=== PATIENT | male | born 1950 | race Two or more races ===

== ENCOUNTER 2016-10-20 11:21 | Emergency (ER) | payer MEDICARE, MEDICAID ==
[~2016-10-20] VITALS: Ht 175.3 cm; Wt 176.2 kg
[~2016-10-20 11:21] MED LIST: AMLO10TA80 PO; ATOR40TA70 PO; FURO40TA5 PO; GLIP10TA10 PO; LISI-604 PO; METO25TA6 PO; SIMV20TA6 PO; TERA2CAP53 PO; TRAM50TA3 PO; WARF1TAB46 PO
[2016-10-20] MEDS ORDERED: SODIUM CHLORIDE 0.9% 1,000 ML IV ONE (14:42)
[2016-10-20] MEDS ORDERED: ONDANSETRON HCL 4MG/2ML VIAL IV STA (14:42)
[2016-10-20 15:15] LABS: HEMATOCRIT. 38.6 % (42.0-52.0); HEMOGLOBIN. 12.8 g/dL (14.0-18.0); MEAN CORPUSCULAR HEMOGLOBIN 26.2 pg (28.0-32.0); MEAN CORPUSCULAR VOLUME 78.9 fL (80.0-94.0); MEAN PLATELET VOLUME 7.9 fl (7.4-10.4); PLATELET 152 x1000/uL (130-400); RED BLOOD CELL COUNT 4.89 mill/uL (4.7-6.1); RED CELL DISTRIBUTION WIDTH 15.7 % (11.6-14.6)
[2016-10-20 15:20] LABS: CHLORIDE 100 mEq/L (98-107)
[2016-10-20 15:22] LABS: INR 1.3
[2016-10-20 15:24] LABS: CARBON DIOXIDE 30 mEq/L (21-32)
[2016-10-20 16:01] LABS: CLARITY URINE CLEAR (CLEAR); COLOR URINE YELLOW (YELLOW); GLUCOSE URINE 3+ (NEGATIVE); KETONES URINE TRACE (NEGATIVE); LEUKOCYTE ESTERASE URINE NEGATIVE (NEGATIVE); NITRITE URINE NEGATIVE (NEGATIVE); OCCULT BLOOD URINE NEGATIVE (NEGATIVE); PROTEIN URINE NEGATIVE (NEGATIVE); SPECIFIC GRAVITY URINE 1.025 (1.005-1.030)
[2016-10-20 16:12] LABS: *AMPHETAMINES SCREEN URINE NEGATIVE (NEGATIVE); *BARBITURATES SCREEN URINE NEGATIVE (NEGATIVE); *BENZODIAZEPINES SCREEN URINE NEGATIVE (NEGATIVE); *COCAINE SCREEN URINE NEGATIVE (NEGATIVE); CANNABINOID URINE SCREEN NEGATIVE (NEGATIVE); METHADONE URINE SCREEN NEGATIVE (NEGATIVE); OPIATES URINE SCREEN NEGATIVE (NEGATIVE); PHENCYCLIDINE URINE SCREEN NEGATIVE (NEGATIVE)
[2016-10-20 16:13] LABS: PLATELET ESTIMATE NORMAL
[2016-10-20] MEDS ORDERED: MORPHINE SULFATE 10 MG/ML CPJ IV ONE (16:45)
[2016-10-20 18:27] VITALS: BP 121/59
== END 2016-10-20 19:01 | disposition home or self-care (01) ==
LOC: ER 16:48
DX: R10.84 Generalized abdominal pain (principal); R11.0 Nausea; N40.0 Benign prostatic hyperplasia without lower urinary tract symptoms; I48.91 Unspecified atrial fibrillation; I25.10 Atherosclerotic heart disease of native coronary artery without angina pectoris; E11.9 Type 2 diabetes mellitus without complications; I50.9 Heart failure, unspecified; Z79.01 Long term (current) use of anticoagulants
CPT/HCPCS: 36415; 74176; 80053; 80305; 81001; 83690; 85025; 85610; 96361; 96374; 96375; 99285; J2270; J2405; J7030

== ENCOUNTER 2016-11-17 19:34 | Emergency (ER) | payer MEDICARE, MEDICAID ==
[~2016-11-17] VITALS: Ht 172.7 cm; Wt 173.0 kg
[2016-11-17] MEDS ORDERED: ACETAMINOPHEN 325MG TABLET PO ONE (21:00)
[2016-11-17 21:35] LABS: HEMATOCRIT. 33.9 % (42.0-52.0); HEMOGLOBIN. 11.1 g/dL (14.0-18.0); MEAN CORPUSCULAR HEMOGLOBIN 26.2 pg (28.0-32.0); MEAN CORPUSCULAR VOLUME 79.9 fL (80.0-94.0); MEAN PLATELET VOLUME 8.2 fl (7.4-10.4); PLATELET 164 x1000/uL (130-400); RED BLOOD CELL COUNT 4.24 mill/uL (4.7-6.1); RED CELL DISTRIBUTION WIDTH 15.7 % (11.6-14.6)
[2016-11-17 21:43] LABS: CHLORIDE 102 mEq/L (98-107)
[2016-11-17 21:45] LABS: CARBON DIOXIDE 27 mEq/L (21-32); ETHANOL BLOOD < 10 mg/dL
[2016-11-17 22:05] LABS: CLARITY URINE CLEAR (CLEAR); COLOR URINE YELLOW (YELLOW); GLUCOSE URINE NEGATIVE (NEGATIVE); KETONES URINE NEGATIVE (NEGATIVE); LEUKOCYTE ESTERASE URINE NEGATIVE (NEGATIVE); NITRITE URINE NEGATIVE (NEGATIVE); OCCULT BLOOD URINE NEGATIVE (NEGATIVE); PROTEIN URINE NEGATIVE (NEGATIVE); UROBILINOGEN URINE 0.2 E.U./dL (0.2-1.0)
[2016-11-17 22:06] LABS: *AMPHETAMINES SCREEN URINE NEGATIVE (NEGATIVE); *BARBITURATES SCREEN URINE NEGATIVE (NEGATIVE); *BENZODIAZEPINES SCREEN URINE NEGATIVE (NEGATIVE); *COCAINE SCREEN URINE NEGATIVE (NEGATIVE); CANNABINOID URINE SCREEN NEGATIVE (NEGATIVE); METHADONE URINE SCREEN NEGATIVE (NEGATIVE); OPIATES URINE SCREEN NEGATIVE (NEGATIVE); PHENCYCLIDINE URINE SCREEN NEGATIVE (NEGATIVE)
[2016-11-17 22:34] LABS: PLATELET ESTIMATE NORMAL
[2016-11-17 23:04] VITALS: BP 109/53
[2016-11-18] MEDS ORDERED: AMOXICILLIN 500 MG CAPSULE PO ONE (00:45)
== END 2016-11-18 01:06 | disposition home or self-care (01) ==
LOC: ER 20:25
DX: J01.90 Acute sinusitis, unspecified (principal); E86.0 Dehydration; I48.91 Unspecified atrial fibrillation; I25.10 Atherosclerotic heart disease of native coronary artery without angina pectoris; N40.0 Benign prostatic hyperplasia without lower urinary tract symptoms; I11.0 Hypertensive heart disease with heart failure; E11.65 Type 2 diabetes mellitus with hyperglycemia; D50.9 Iron deficiency anemia, unspecified; Z79.01 Long term (current) use of anticoagulants; Z79.84 Long term (current) use of oral hypoglycemic drugs
CPT/HCPCS: 36415; 70450; 80053; 80305; 81003; 82962; 85025; 99285; G0482

== ENCOUNTER 2017-08-22 09:28 | Inpatient (IN) | payer MEDICARE, MEDICAID ==
[~2017-08-22] VITALS: Ht 175.3 cm; Wt 188.7 kg
[~2017-08-22 09:28] MED LIST changes: +TERA2CAP4 PO; -TERA2CAP53 PO
[2017-08-22 10:17] LABS: BASOPHILS % 0.6 % (0.0-2.0); EOSINOPHILS % 1.6 % (0.0-5.0); HEMATOCRIT. 30.7 % (42.0-52.0); HEMOGLOBIN. 9.4 g/dL (14.0-18.0); LYMPHOCYTES % 12.5 % (20.0-50.0); MEAN CORPUSCULAR HEMOGLOBIN 23.4 pg (28.0-32.0); MEAN CORPUSCULAR VOLUME 76.9 fL (80.0-94.0); MEAN PLATELET VOLUME 7.2 fl (7.4-10.4); MONOCYTES % 5.6 % (2.0-8.0); NEUTROPHILS % 79.7 % (40.0-76.0); PLATELET 209 x1000/uL (130-400); RED CELL DISTRIBUTION WIDTH 21.5 % (11.6-14.6)
[2017-08-22 10:18] LABS: CHLORIDE 97 mEq/L (98-107)
[2017-08-22 10:19] LABS: INR 1.4; PROTHROMBIN TIME 14.7 sec (9.4-11.6)
[2017-08-22 10:27] LABS: CREATINE KINASE 45 IU/L (39-308)
[2017-08-22 10:30] LABS: CREATINE KINASE MB FRACTION 1.1 ng/mL (0.5-3.6)
[2017-08-22 10:56] LABS: BG BASE EXCESS 11.6 mmol/L (-2.0-2.0); BG CARBOXYHEMOGLOBIN 0.8 % (0.5-1.5); BG DEOXYHEMOGLOBIN 6.7 % (0.0-5.0); BG FRACTION INSPIRED OXYGEN 36; BG HCO3 ACT 39.8 mmol/L (22.0-26.0); BG METHEMOGLOBIN 0.3 % (0.0-1.5); BG OXYGEN SATURATION 93.2 % (92.0-98.5); BG OXYHEMOGLOBIN 92.2 % (94.0-97.0); BG PCO2 75.8 mmHg (35.0-45.0); BG PH 7.338 (7.350-7.450); BG PO2 74.8 mmHg (75.0-100.0); BG SAMPLE SITE RIGHT RADIAL; BG TOTAL HEMOGLOBIN 10.5 g/dL (12.0-18.0); BG VENT MODE NASAL CANNULA
[2017-08-22] MEDS ORDERED: ALBUTEROL (0.083%) 2.5MG/3ML NEB HHN STA (10:57)
[2017-08-22] MEDS ORDERED: BUMETANIDE 0.25MG/ML 2ML VIAL IV ONE (11:00)
[2017-08-22] MEDS ORDERED: CLONIDINE 0.1MG TABLET PO PRN (13:00)
[2017-08-22] MEDS ORDERED: ENOXAPARIN 40MG/0.4ML SYR SUBCUT SCH (13:00)
[2017-08-22] MEDS ORDERED: GUAIFENESIN 200MG/10ML SUGAR FREE UDC PO PRN (13:00)
[2017-08-22] MEDS ORDERED: ONDANSETRON HCL 4MG/2ML VIAL IV PRN (13:00)
[2017-08-22] MEDS ORDERED: MAGNESIUM/ALUMINUM HYDROXIDE/SIMETHICONE 30ML UDC PO PRN (13:00)
[2017-08-22] MEDS ORDERED: IPRATROPIUM/ALBUTEROL 0.5-3(2.5)MG/3ML NEB INH PRN (13:00)
[2017-08-22] MEDS ORDERED: ACETAMINOPHEN 325MG TABLET PO PRN (13:00)
[2017-08-22] MEDS ORDERED: MORPHINE SULFATE 4 MG/ML CPJ (NOT FOR IM USE) IV PRN (13:00)
[2017-08-22] MEDS ORDERED: HYDROCODONE/ACETAMINOPHEN 5/325MG TABLET PO PRN (13:00)
[2017-08-22 15:07] LABS: CREATINE KINASE MB FRACTION 1.3 ng/mL (0.5-3.6)
[2017-08-22] MEDS ORDERED: WARFARIN SODIUM 7.5MG TABLET PO SCH (17:00)
[2017-08-22 17:12] VITALS: BP 116/64
[2017-08-22 17:16] VITALS: BP 116/64
[2017-08-22] MEDS ORDERED: GLIP10TA10 PO (17:27)
[2017-08-22] MEDS ORDERED: AMLO5TAB4 PO (17:27)
[2017-08-22] MEDS ORDERED: ATOR40TA70 PO (17:27)
[2017-08-22] MEDS ORDERED: FURO-152 PO (17:27)
[2017-08-22] MEDS ORDERED: LISI-604 PO (17:27)
[2017-08-22] MEDS ORDERED: TERA5CAP4 PO (17:27)
[2017-08-22] MEDS ORDERED: RIVA20TA PO (17:27)
[2017-08-22] MEDS ORDERED: METO25TA6 PO (17:27)
[2017-08-22] MEDS: FUROSEMIDE 40MG/4ML VIAL IVP SCH (17:35)
[2017-08-22 17:47] VITALS: BP 122/69
[2017-08-22] MEDS ORDERED: DEXTROSE 50% WATER 50ML SYRINGE IV PRN (19:15)
[2017-08-22 20:00] VITALS: BP 120/62
[2017-08-22] MEDS: IPRATROPIUM/ALBUTEROL 0.5-3(2.5)MG/3ML NEB HHN SCH (20:07)
[2017-08-22] MEDS: ATORVASTATIN CALCIUM 40MG TABLET PO SCH (20:07)
[2017-08-22] MEDS: AMLODIPINE 5MG TABLET PO SCH (20:07)
[2017-08-22] MEDS: BLOOD SUGAR DIAGNOSTIC STRIP TEST SCH (20:29)
[2017-08-22] MEDS: INSULIN LISPRO 100 UNITS/ML SUBCUT SCH (20:32)
[2017-08-22 22:00] VITALS: BP 133/73
[2017-08-23] VITALS (12 sets, daily range): BP systolic 92–120; BP diastolic 49–64
[2017-08-23 00:18] LABS: CREATINE KINASE 48 IU/L (39-308)
[2017-08-23 00:20] LABS: CREATINE KINASE MB FRACTION 1.4 ng/mL (0.5-3.6)
[2017-08-23] MEDS: IPRATROPIUM/ALBUTEROL 0.5-3(2.5)MG/3ML NEB HHN SCH ×4 (01:45→20:14)
[2017-08-23] MEDS: FUROSEMIDE 40MG/4ML VIAL IVP SCH ×2 (06:41→18:35)
[2017-08-23 06:53] LABS: INR 1.3; PROTHROMBIN TIME 13.5 sec (9.4-11.6)
[2017-08-23 07:31] LABS: BASOPHILS % 0.6 % (0.0-2.0); EOSINOPHILS % 1.4 % (0.0-5.0); HEMATOCRIT. 26.2 % (42.0-52.0); HEMOGLOBIN. 8.4 g/dL (14.0-18.0); LYMPHOCYTES % 12.8 % (20.0-50.0); MEAN CORPUSCULAR HEMOGLOBIN 26.2 pg (28.0-32.0); MEAN CORPUSCULAR VOLUME 81.7 fL (80.0-94.0); MEAN PLATELET VOLUME 7.8 fl (7.4-10.4); MONOCYTES % 7.4 % (2.0-8.0); NEUTROPHILS % 77.8 % (40.0-76.0); PLATELET 185 x1000/uL (130-400); RED CELL DISTRIBUTION WIDTH 20.5 % (11.6-14.6)
[2017-08-23] MEDS: BLOOD SUGAR DIAGNOSTIC STRIP TEST SCH ×4 (07:39→20:05)
[2017-08-23] MEDS: AMLODIPINE 5MG TABLET PO SCH (08:20)
[2017-08-23] MEDS: INSULIN LISPRO 100 UNITS/ML SUBCUT SCH ×4 (08:39→20:46)
[2017-08-23] MEDS: ASPIRIN 81MG EC TABLET PO SCH (08:39)
[2017-08-23 08:40] LABS: CHLORIDE 98 mEq/L (98-107)
[2017-08-23 08:58] LABS: LDL CHOLESTEROL 28 mg/dL (5-100)
[2017-08-23 08:59] LABS: HDL CHOLESTEROL 31 mg/dL (40-59)
[2017-08-23] MEDS ORDERED: FUROSEMIDE 40MG/4ML VIAL IV SCH (09:00)
[2017-08-23] MEDS ORDERED: AMLODIPINE 10MG TABLET PO SCH (09:00)
[2017-08-23] MEDS: DILTIAZEM HCL 60MG TABLET PO SCH ×2 (13:31→21:17)
[2017-08-23 15:19] LABS: HEMATOCRIT 29.5 % (42.0-52.0); HEMOGLOBIN 8.9 g/dL (14.0-18.0)
[2017-08-23] MEDS: RIVAROXABAN 20 MG TABLET PO SCH (18:35)
[2017-08-23] MEDS: ATORVASTATIN CALCIUM 40MG TABLET PO SCH (20:41)
[2017-08-24] VITALS (12 sets, daily range): BP systolic 103–143; BP diastolic 54–77
[2017-08-24] MEDS: IPRATROPIUM/ALBUTEROL 0.5-3(2.5)MG/3ML NEB HHN SCH ×4 (03:32→20:33)
[2017-08-24 06:44] LABS: BASOPHILS % 0.7 % (0.0-2.0); EOSINOPHILS % 1.3 % (0.0-5.0); HEMATOCRIT. 27.4 % (42.0-52.0); HEMOGLOBIN. 8.8 g/dL (14.0-18.0); LYMPHOCYTES % 13.8 % (20.0-50.0); MEAN CORPUSCULAR HEMOGLOBIN 24.8 pg (28.0-32.0); MEAN CORPUSCULAR VOLUME 77.4 fL (80.0-94.0); MEAN PLATELET VOLUME 7.8 fl (7.4-10.4); MONOCYTES % 7.7 % (2.0-8.0); NEUTROPHILS % 76.5 % (40.0-76.0); PLATELET 201 x1000/uL (130-400); RED BLOOD CELL COUNT 3.53 mill/uL (4.7-6.1); RED CELL DISTRIBUTION WIDTH 20.4 % (11.6-14.6)
[2017-08-24 06:45] LABS: INR 1.5
[2017-08-24] MEDS: DILTIAZEM HCL 60MG TABLET PO SCH ×3 (06:51→21:17)
[2017-08-24] MEDS: FUROSEMIDE 40MG/4ML VIAL IVP SCH ×2 (06:51→17:51)
[2017-08-24 07:10] LABS: CHLORIDE 94 mEq/L (98-107)
[2017-08-24] MEDS: BLOOD SUGAR DIAGNOSTIC STRIP TEST SCH ×4 (08:27→21:18)
[2017-08-24] MEDS: INSULIN LISPRO 100 UNITS/ML SUBCUT SCH ×4 (08:35→21:16)
[2017-08-24] MEDS: DOCUSATE SODIUM 100MG CAPSULE PO PRN ×2 (08:37→17:51)
[2017-08-24] MEDS: ASPIRIN 81MG EC TABLET PO SCH (08:37)
[2017-08-24] MEDS: RIVAROXABAN 20 MG TABLET PO SCH (17:51)
[2017-08-24] MEDS: ATORVASTATIN CALCIUM 40MG TABLET PO SCH (21:16)
[2017-08-25] VITALS (12 sets, daily range): BP systolic 116–142; BP diastolic 50–77
[2017-08-25] MEDS: IPRATROPIUM/ALBUTEROL 0.5-3(2.5)MG/3ML NEB HHN SCH ×4 (01:24→20:16)
[2017-08-25] MEDS: FUROSEMIDE 40MG/4ML VIAL IVP SCH ×2 (06:18→17:33)
[2017-08-25] MEDS: DILTIAZEM HCL 60MG TABLET PO SCH ×3 (06:18→21:59)
[2017-08-25 06:47] LABS: INR 1.6; PROTHROMBIN TIME 16.9 sec (9.4-11.6)
[2017-08-25] MEDS: BLOOD SUGAR DIAGNOSTIC STRIP TEST SCH ×4 (08:24→21:05)
[2017-08-25] MEDS: INSULIN LISPRO 100 UNITS/ML SUBCUT SCH ×4 (08:49→21:06)
[2017-08-25] MEDS: ASPIRIN 81MG EC TABLET PO SCH (08:50)
[2017-08-25] MEDS: DOCUSATE SODIUM 100MG CAPSULE PO PRN ×2 (08:50→17:33)
[2017-08-25 11:40] LABS: BG BASE EXCESS 15.3 mmol/L (-2.0-2.0); BG CARBOXYHEMOGLOBIN 0.6 % (0.5-1.5); BG DEOXYHEMOGLOBIN 19.5 % (0.0-5.0); BG FRACTION INSPIRED OXYGEN 21; BG HCO3 ACT 42.4 mmol/L (22.0-26.0); BG METHEMOGLOBIN 0.4 % (0.0-1.5); BG OXYGEN SATURATION 80.3 % (92.0-98.5); BG OXYHEMOGLOBIN 79.5 % (94.0-97.0); BG PH 7.413 (7.350-7.450); BG PO2 44.5 mmHg (75.0-100.0); BG SAMPLE SITE RIGHT RADIAL; BG TOTAL HEMOGLOBIN 10.4 g/dL (12.0-18.0); BG VENT MODE ROOM AIR
[2017-08-25] MEDS: RIVAROXABAN 20 MG TABLET PO SCH (17:33)
[2017-08-25] MEDS: ATORVASTATIN CALCIUM 40MG TABLET PO SCH (21:07)
[2017-08-26] VITALS (9 sets, daily range): BP systolic 108–148; BP diastolic 59–77
[2017-08-26] MEDS: IPRATROPIUM/ALBUTEROL 0.5-3(2.5)MG/3ML NEB HHN SCH ×3 (02:34→14:11)
[2017-08-26 05:43] LABS: BASOPHILS % 0.6 % (0.0-2.0); EOSINOPHILS % 2.1 % (0.0-5.0); HEMATOCRIT. 29.4 % (42.0-52.0); HEMOGLOBIN. 9.2 g/dL (14.0-18.0); MEAN CORPUSCULAR HEMOGLOBIN 24.4 pg (28.0-32.0); MEAN PLATELET VOLUME 7.7 fl (7.4-10.4); MONOCYTES % 7.1 % (2.0-8.0); NEUTROPHILS % 78.2 % (40.0-76.0); PLATELET 210 x1000/uL (130-400); RED BLOOD CELL COUNT 3.77 mill/uL (4.7-6.1); RED CELL DISTRIBUTION WIDTH 20.6 % (11.6-14.6)
[2017-08-26 05:44] LABS: INR 1.7; PROTHROMBIN TIME 17.4 sec (9.4-11.6)
[2017-08-26] MEDS: FUROSEMIDE 40MG/4ML VIAL IVP SCH (07:17)
[2017-08-26] MEDS: DILTIAZEM HCL 60MG TABLET PO SCH ×2 (07:17→14:33)
[2017-08-26] MEDS: BLOOD SUGAR DIAGNOSTIC STRIP TEST SCH ×2 (07:30→13:01)
[2017-08-26] MEDS: ASPIRIN 81MG EC TABLET PO SCH (08:38)
[2017-08-26] MEDS: INSULIN LISPRO 100 UNITS/ML SUBCUT SCH ×2 (08:39→12:47)
== END 2017-08-26 15:20 | disposition home health service (06) | DRG 291 ==
LOC: ER 09:40 → 5EST 11:12 → SUPCPDRO 12:53 → ENRESERV 15:34
PROVIDERS: ADMIT Hospitalist; ATTEND Hospitalist
PROC: 5A09357 Assistance with Respiratory Ventilation, Less than 24 Consecutive Hours, Continuous Positive Airway Pressure (ICD-10-PCS; principal; 2017-08-22)
PROC: 5A09357 Assistance with Respiratory Ventilation, Less than 24 Consecutive Hours, Continuous Positive Airway Pressure (ICD-10-PCS; 2017-08-23)
PROC: 5A09357 Assistance with Respiratory Ventilation, Less than 24 Consecutive Hours, Continuous Positive Airway Pressure (ICD-10-PCS; 2017-08-24)
PROC: 5A09357 Assistance with Respiratory Ventilation, Less than 24 Consecutive Hours, Continuous Positive Airway Pressure (ICD-10-PCS; 2017-08-26)
DX: I13.0 Hypertensive heart and chronic kidney disease with heart failure and stage 1 through stage 4 chronic kidney disease, or unspecified chronic kidney disease (principal); I50.31 Acute diastolic (congestive) heart failure; J96.01 Acute respiratory failure with hypoxia; J96.02 Acute respiratory failure with hypercapnia; E87.2 Acidosis; E44.1 Mild protein-calorie malnutrition; E66.2 Morbid (severe) obesity with alveolar hypoventilation; Z68.45 Body mass index [BMI] 70 or greater, adult; I48.1 Persistent atrial fibrillation; Z68.44 Body mass index [BMI] 60.0-69.9, adult; N18.9 Chronic kidney disease, unspecified; E87.5 Hyperkalemia; E78.5 Hyperlipidemia, unspecified; I50.82 Biventricular heart failure; Z79.01 Long term (current) use of anticoagulants; Z79.899 Other long term (current) drug therapy; Z99.81 Dependence on supplemental oxygen
CPT/HCPCS: 36415; 36600; 71045; 80048; 80053; 80061; 82375; 82550; 82553; 82805; 82962; 83605; 83690; 83735; 83880; 84484; 85014; 85018; 85025; 85610; 86850; 86900; 87040; 93005; 93306; 93970; 94640; 94660; 96374; 97116; 97163; 97530; 99291; J1815; J1940; J3490; J7611; J7620; A4315

== ENCOUNTER 2018-03-02 22:49 | Inpatient (IN) | payer MEDICARE, MEDICAID ==
[~2018-03-02] VITALS: Ht 175.3 cm; Wt 194.3 kg
[~2018-03-02 22:49] MED LIST changes: -AMLO10TA80 PO; +AMLO5TAB4 PO; +FURO-152 PO; -FURO40TA5 PO; +RIVA20TA PO; -SIMV20TA6 PO; -TERA2CAP4 PO; +TERA5CAP4 PO; -TRAM50TA3 PO; -WARF1TAB46 PO
[2018-03-02] MEDS ORDERED: SODIUM CHLORIDE 0.9% 1,000 ML IV ONE (23:15)
[2018-03-02 23:32] LABS: BASOPHILS % 0.8 % (0.0-2.0); EOSINOPHILS % 1.9 % (0.0-5.0); HEMATOCRIT. 37.9 % (42.0-52.0); HEMOGLOBIN. 12.1 g/dL (14.0-18.0); LYMPHOCYTES % 13.7 % (20.0-50.0); MEAN CORPUSCULAR HEMOGLOBIN 25.8 pg (28.0-32.0); MEAN CORPUSCULAR VOLUME 80.5 fL (80.0-94.0); MEAN PLATELET VOLUME 8.1 fl (7.4-10.4); MONOCYTES % 6.5 % (2.0-8.0); NEUTROPHILS % 77.1 % (40.0-76.0); PLATELET 171 x1000/uL (130-400); RED BLOOD CELL COUNT 4.71 mill/uL (4.7-6.1)
[2018-03-02 23:40] LABS: INR 1.2
[2018-03-02 23:42] LABS: CHLORIDE 101 mEq/L (98-107); ETHANOL BLOOD < 10 mg/dL
[2018-03-02 23:49] LABS: LDL CHOLESTEROL 43 mg/dL (5-100)
[2018-03-03] MEDS ORDERED: ASPIRIN 300MG SUPP PR ONE (00:45)
[2018-03-03 01:49] LABS: *AMPHETAMINES SCREEN URINE NEGATIVE (NEGATIVE); *BARBITURATES SCREEN URINE NEGATIVE (NEGATIVE); *BENZODIAZEPINES SCREEN URINE NEGATIVE (NEGATIVE); *COCAINE SCREEN URINE NEGATIVE (NEGATIVE); CANNABINOID URINE SCREEN NEGATIVE (NEGATIVE); METHADONE URINE SCREEN NEGATIVE (NEGATIVE); OPIATES URINE SCREEN NEGATIVE (NEGATIVE); PHENCYCLIDINE URINE SCREEN NEGATIVE (NEGATIVE)
[2018-03-03 01:55] LABS: CLARITY URINE CLEAR (CLEAR); COLOR URINE YELLOW (YELLOW); KETONES URINE NEGATIVE (NEGATIVE); LEUKOCYTE ESTERASE URINE NEGATIVE (NEGATIVE); NITRITE URINE NEGATIVE (NEGATIVE); OCCULT BLOOD URINE NEGATIVE (NEGATIVE); PROTEIN URINE NEGATIVE (NEGATIVE); SPECIFIC GRAVITY URINE 1.018 (1.005-1.030)
[2018-03-03] MEDS ORDERED: DEXTROSE 50% WATER 50ML SYRINGE IV PRN (13:00)
[2018-03-03] MEDS ORDERED: CLONIDINE 0.1MG TABLET PO PRN (14:15)
[2018-03-03 16:00] VITALS: BP 105/73
[2018-03-03 17:16] VITALS: BP 105/73
[2018-03-03] MEDS ORDERED: RIVAROXABAN 10 MG TABLET PO SCH (17:30)
[2018-03-03] MEDS: INSULIN LISPRO 100 UNITS/ML SUBCUT SCH ×2 (18:12→20:30)
[2018-03-03 20:00] VITALS: BP 141/77
[2018-03-03] MEDS: BLOOD SUGAR DIAGNOSTIC STRIP TEST SCH (20:21)
[2018-03-03] MEDS: ATORVASTATIN CALCIUM 20MG TABLET PO SCH (21:08)
[2018-03-03] MEDS: TERAZOSIN HCL 5MG CAPSULE PO SCH (21:08)
[2018-03-04] VITALS: BP 131/63
[2018-03-04 04:00] VITALS: BP_SYST 112; BP_SYST 76; BP_DIAS 71
[2018-03-04] MEDS: BLOOD SUGAR DIAGNOSTIC STRIP TEST SCH ×4 (07:03→21:00)
[2018-03-04] MEDS: INSULIN LISPRO 100 UNITS/ML SUBCUT SCH ×4 (07:08→22:14)
[2018-03-04 08:00] VITALS: BP 120/68
[2018-03-04] MEDS: ASPIRIN 81MG TABLET PO SCH (09:59)
[2018-03-04] MEDS: PREDNISONE 20MG TABLET PO SCH (09:59)
[2018-03-04 12:00] VITALS: BP 135/76
[2018-03-04] MEDS ORDERED: VERAPAMIL HCL 2.5 MG/1 ML 2ML VIAL IV PRN (12:30)
[2018-03-04] MEDS: VALACYCLOVIR HCL 500MG TABLET PO SCH ×2 (12:47→20:21)
[2018-03-04] MEDS: DILTIAZEM HCL 60MG TABLET PO SCH ×2 (13:32→22:11)
[2018-03-04 16:00] VITALS: BP 130/74
[2018-03-04] MEDS: RIVAROXABAN 20 MG TABLET PO SCH (18:26)
[2018-03-04 20:06] VITALS: BP 124/71
[2018-03-04] MEDS: TERAZOSIN HCL 5MG CAPSULE PO SCH (20:16)
[2018-03-04] MEDS: ATORVASTATIN CALCIUM 20MG TABLET PO SCH (20:21)
[2018-03-04] MEDS: POLYVINYL ALCOHOL OPHTH DROPS 15ML LEFTEYE SCH (21:00)
[2018-03-04] MEDS: INSULIN GLARGINE UD 100 UNITS/ML SYR SUBCUT SCH (22:12)
[2018-03-05] VITALS (7 sets, daily range): BP systolic 104–163; BP diastolic 51–100
[2018-03-05] MEDS: POLYVINYL ALCOHOL OPHTH DROPS 15ML LEFTEYE SCH ×5 (01:00→20:43)
[2018-03-05] MEDS: DILTIAZEM HCL 60MG TABLET PO SCH (05:48)
[2018-03-05] MEDS: BLOOD SUGAR DIAGNOSTIC STRIP TEST SCH ×4 (07:27→20:46)
[2018-03-05 07:32] LABS: BASOPHILS % 0.3 % (0.0-2.0); EOSINOPHILS % 0.1 % (0.0-5.0); HEMATOCRIT. 35.7 % (42.0-52.0); HEMOGLOBIN. 11.6 g/dL (14.0-18.0); LYMPHOCYTES % 8.7 % (20.0-50.0); MEAN CORPUSCULAR HEMOGLOBIN 26.2 pg (28.0-32.0); MEAN CORPUSCULAR VOLUME 80.7 fL (80.0-94.0); MEAN PLATELET VOLUME 8.2 fl (7.4-10.4); MONOCYTES % 5.5 % (2.0-8.0); NEUTROPHILS % 85.4 % (40.0-76.0); PLATELET 174 x1000/uL (130-400); RED BLOOD CELL COUNT 4.42 mill/uL (4.7-6.1)
[2018-03-05 08:29] LABS: CHLORIDE 103 mEq/L (98-107)
[2018-03-05] MEDS: VALACYCLOVIR HCL 500MG TABLET PO SCH ×2 (09:59→20:46)
[2018-03-05] MEDS: PREDNISONE 20MG TABLET PO SCH (09:59)
[2018-03-05] MEDS: ASPIRIN 81MG TABLET PO SCH (09:59)
[2018-03-05] MEDS: DILTIAZEM HCL 30MG TABLET PO SCH ×3 (13:55→23:44)
[2018-03-05] MEDS: INSULIN LISPRO 100 UNITS/ML SUBCUT SCH ×4 (13:57→20:53)
[2018-03-05] MEDS: INSULIN GLARGINE UD 100 UNITS/ML SYR SUBCUT SCH ×2 (13:58→21:47)
[2018-03-05] MEDS ORDERED: INSULIN REGULAR (HUMULIN R) UD 100 UNITS/ML SYR SUBCUT ONE (14:15)
[2018-03-05] MEDS ORDERED: GLIPIZIDE 10MG TABLET PO SCH (14:30)
[2018-03-05] MEDS ORDERED: INSULIN LISPRO 100 UNITS/ML SUBCUT ONE (14:45)
[2018-03-05] MEDS ORDERED: INSULIN LISPRO 100 UNITS/ML SUBCUT NR (14:45)
[2018-03-05] MEDS: RIVAROXABAN 20 MG TABLET PO SCH (17:23)
[2018-03-05] MEDS: TERAZOSIN HCL 5MG CAPSULE PO SCH (20:45)
[2018-03-05] MEDS: ATORVASTATIN CALCIUM 20MG TABLET PO SCH (20:45)
[2018-03-06 04:00] VITALS: BP 132/68
[2018-03-06] MEDS: DILTIAZEM HCL 30MG TABLET PO SCH ×2 (06:33→12:40)
[2018-03-06] MEDS: BLOOD SUGAR DIAGNOSTIC STRIP TEST SCH ×2 (06:33→11:53)
[2018-03-06] MEDS ORDERED: GLIPIZIDE 10MG TABLET PO SCH (06:45)
[2018-03-06 08:00] VITALS: BP 113/52
[2018-03-06 08:42] LABS: BASOPHILS % 0.2 % (0.0-2.0); HEMATOCRIT. 37.4 % (42.0-52.0); HEMOGLOBIN. 11.9 g/dL (14.0-18.0); LYMPHOCYTES % 10.4 % (20.0-50.0); MEAN CORPUSCULAR HEMOGLOBIN 25.8 pg (28.0-32.0); MEAN CORPUSCULAR VOLUME 80.7 fL (80.0-94.0); MEAN PLATELET VOLUME 8.2 fl (7.4-10.4); MONOCYTES % 4.7 % (2.0-8.0); NEUTROPHILS % 84.7 % (40.0-76.0); PLATELET 195 x1000/uL (130-400); RED BLOOD CELL COUNT 4.63 mill/uL (4.7-6.1); RED CELL DISTRIBUTION WIDTH 16.8 % (11.6-14.6)
[2018-03-06 09:04] LABS: CHLORIDE 101 mEq/L (98-107)
[2018-03-06] MEDS: VALACYCLOVIR HCL 500MG TABLET PO SCH (10:18)
[2018-03-06] MEDS: POLYVINYL ALCOHOL OPHTH DROPS 15ML LEFTEYE SCH ×2 (10:18→13:00)
[2018-03-06] MEDS: PREDNISONE 20MG TABLET PO SCH (10:19)
[2018-03-06] MEDS: ASPIRIN 81MG TABLET PO SCH (10:19)
[2018-03-06] MEDS: INSULIN GLARGINE UD 100 UNITS/ML SYR SUBCUT SCH (10:26)
[2018-03-06] MEDS: INSULIN LISPRO 100 UNITS/ML SUBCUT SCH (12:43)
[2018-03-06 13:11] VITALS: BP 122/65
== END 2018-03-06 14:08 | disposition home or self-care (01) | DRG 74 ==
LOC: ER 22:49 → 5WST 03-03 00:35 → ENRESERV 03-03 16:20
PROVIDERS: ADMIT Internal Medicine; ATTEND Internal Medicine
DX: G51.0 Bell's palsy (principal); I48.1 Persistent atrial fibrillation; Z68.44 Body mass index [BMI] 60.0-69.9, adult; E44.0 Moderate protein-calorie malnutrition; I50.32 Chronic diastolic (congestive) heart failure; D68.59 Other primary thrombophilia; E66.01 Morbid (severe) obesity due to excess calories; E11.9 Type 2 diabetes mellitus without complications; E78.5 Hyperlipidemia, unspecified; G47.33 Obstructive sleep apnea (adult) (pediatric); I11.0 Hypertensive heart disease with heart failure; I48.2 Chronic atrial fibrillation; Z79.4 Long term (current) use of insulin; Z79.01 Long term (current) use of anticoagulants; Z79.899 Other long term (current) drug therapy
CPT/HCPCS: 36415; 71045; 80048; 80305; 82962; 83721; 83735; 84443; 84484; 92610; 93005; 96360; 97162; 99291; G0482; J1815; J7030; J7512

== ENCOUNTER 2018-04-08 06:00 | Inpatient (IN) | payer MEDICARE, MEDICAID ==
[2018-04-08] VITALS (24 sets, daily range): BP systolic 93–164; BP diastolic 32–92
[~2018-04-08] VITALS: Ht 175.3 cm; Wt 192.8 kg
[2018-04-08 07:39] LABS: CHLORIDE 103 mEq/L (98-107)
[2018-04-08 07:40] LABS: HEMATOCRIT 37.8 % (42.0-52.0); HEMOGLOBIN 12.4 g/dL (14.0-18.0); MEAN CORPUSCULAR HEMOGLOBIN 27.2 pg (28.0-32.0); MEAN CORPUSCULAR VOLUME 83.3 fL (80.0-94.0); PLATELET 176 x1000/uL (130-400); RED BLOOD CELL COUNT 4.54 mill/uL (4.7-6.1); RED CELL DISTRIBUTION WIDTH 17.4 % (11.6-14.6)
[2018-04-08 07:41] LABS: INR 1.2; PARTIAL THROMBOPLASTIN TIME 30.2 sec (23.4-31.0); PROTHROMBIN TIME 11.8 sec (9.1-11.1)
[2018-04-08] MEDS ORDERED: IODIXANOL 320MG/ML 100 ML BOTTLE IV ONE (07:51)
[2018-04-08] MEDS ORDERED: HEPARIN 1,000 UNITS PREMIX 0 ML IV ONE (07:51)
[2018-04-08] MEDS ORDERED: GENTAMICIN SULF 40MG/ML 2ML VIAL ONE (07:51)
[2018-04-08] MEDS ORDERED: GENTAMICIN/NS IRRIGATION 500 ML IR ONE (07:52)
[2018-04-08] MEDS ORDERED: LIDOCAINE HCL 1% 20ML VIAL (Pyxis) INJ ONE (07:52)
[2018-04-08] MEDS ORDERED: PROPOFOL 10MG/ML 100ML 100 ML IV ONE (08:30)
[2018-04-08] MEDS ORDERED: GLYCOPYRROLATE 0.2 MG/ML 2ML VIAL ONE (08:59)
[2018-04-08] MEDS ORDERED: PROPOFOL 200MG/20ML VIAL IV ONE (08:59)
[2018-04-08] MEDS ORDERED: FENTANYL CITRATE/PF 50MCG/ML 2ML VIAL ONE ×2 (08:59→09:39)
[2018-04-08] MEDS ORDERED: LIDOCAINE HCL/PF 1% 10 MG/ML 5ML VIAL ONE (08:59)
[2018-04-08] MEDS ORDERED: MIDAZOLAM HCL 2 MG/2 ML VIAL ONE ×3 (08:59→10:28)
[2018-04-08] MEDS ORDERED: SUCCINYLCHOLINE CHLORIDE 200MG/10ML IV ONE (09:00)
[2018-04-08] MEDS ORDERED: INSU100I28 SQ ×2 (09:48→12:52)
[2018-04-08] MEDS ORDERED: GLIP10TA10 PO (09:48)
[2018-04-08] MEDS ORDERED: SODIUM CHLORIDE 0.9% 1,000 ML IV ONE (11:09)
[2018-04-08] MEDS ORDERED: ONDANSETRON HCL 4MG/2ML INJ IV PRN (11:15)
[2018-04-08] MEDS ORDERED: HYDROMORPHONE HCL/PF 2MG/ML CPJ IV PRN (11:15)
[2018-04-08] MEDS: HYDROCODONE/ACETAMINOPHEN 5/325MG TABLET PO PRN ×2 (13:08→17:27)
[2018-04-08] MEDS ORDERED: DEXTROSE 50% WATER 50ML SYRINGE IV PRN (16:45)
[2018-04-08] MEDS: BLOOD SUGAR DIAGNOSTIC STRIP TEST SCH ×2 (16:50→21:00)
[2018-04-08] MEDS ORDERED: RIVAROXABAN 20 MG TABLET PO SCH (17:20)
[2018-04-08] MEDS: FUROSEMIDE 40MG TABLET PO SCH (17:26)
[2018-04-08] MEDS: GLIPIZIDE 10MG TABLET PO SCH (17:26)
[2018-04-08] MEDS: LISINOPRIL 20MG TABLET PO SCH (17:27)
[2018-04-08] MEDS: INSULIN LISPRO 100 UNITS/ML SUBCUT SCH ×2 (17:28→21:23)
[2018-04-08] MEDS ORDERED: ATORVASTATIN CALCIUM 40MG TABLET PO SCH (21:00)
[2018-04-08] MEDS ORDERED: TERAZOSIN HCL 5MG CAPSULE PO SCH (21:00)
[2018-04-08] MEDS: METOPROLOL TARTRATE 25MG TABLET PO SCH (21:25)
[2018-04-08] MEDS: INSULIN GLARGINE UD 100 UNITS/ML SYR SUBCUT SCH ×2 (21:56→22:00)
[2018-04-09] VITALS (13 sets, daily range): BP systolic 89–128; BP diastolic 29–80
[2018-04-09] MEDS: HYDROCODONE/ACETAMINOPHEN 5/325MG TABLET PO PRN ×2 (03:54→11:36)
[2018-04-09] MEDS: BLOOD SUGAR DIAGNOSTIC STRIP TEST SCH ×2 (06:24→11:50)
[2018-04-09] MEDS: FUROSEMIDE 40MG TABLET PO SCH (06:24)
[2018-04-09] MEDS: INSULIN LISPRO 100 UNITS/ML SUBCUT SCH ×2 (06:25→12:29)
[2018-04-09 06:31] LABS: BASOPHILS % 0.5 % (0.0-2.0); EOSINOPHILS % 1.2 % (0.0-5.0); HEMATOCRIT. 35.6 % (42.0-52.0); HEMOGLOBIN. 11.7 g/dL (14.0-18.0); LYMPHOCYTES % 13.5 % (20.0-50.0); MEAN CORPUSCULAR HEMOGLOBIN 27.4 pg (28.0-32.0); MEAN CORPUSCULAR VOLUME 83.3 fL (80.0-94.0); MEAN PLATELET VOLUME 8.1 fl (7.4-10.4); MONOCYTES % 7.1 % (2.0-8.0); NEUTROPHILS % 77.7 % (40.0-76.0); PLATELET 153 x1000/uL (130-400); RED BLOOD CELL COUNT 4.27 mill/uL (4.7-6.1); RED CELL DISTRIBUTION WIDTH 17.2 % (11.6-14.6)
[2018-04-09 06:43] LABS: CHLORIDE 103 mEq/L (98-107)
[2018-04-09 06:49] LABS: LDL CHOLESTEROL 39 mg/dL (5-100)
[2018-04-09 06:51] LABS: HDL CHOLESTEROL 31 mg/dL (40-59)
[2018-04-09] MEDS: GLIPIZIDE 10MG TABLET PO SCH (07:45)
[2018-04-09] MEDS: LISINOPRIL 20MG TABLET PO SCH (08:11)
[2018-04-09] MEDS: METOPROLOL TARTRATE 25MG TABLET PO SCH (08:12)
[2018-04-09] MEDS ORDERED: GLIPIZIDE 10MG TABLET PO SCH (09:00)
[2018-04-09] MEDS ORDERED: [UNRECOGNIZED DRUG - OTHER] SQ SCH (09:00)
[2018-04-09] MEDS ORDERED: AMLODIPINE 5MG TABLET PO SCH (09:00)
[2018-04-09] MEDS ORDERED: INSULIN GLARGINE HUM REC ANLOG SQ SCH (09:00)
[2018-04-09] MEDS ORDERED: INSULIN GLARGINE UD 100 UNITS/ML SYR SUBCUT SCH (10:00)
[2018-04-09] MEDS ORDERED: INSULIN LISPRO 100 UNITS/ML SUBCUT NR (12:30)
== END 2018-04-09 14:58 | disposition home or self-care (01) | DRG 243 ==
LOC: OR 06:00 → 3WST 06:01
PROVIDERS: ADMIT Internal Medicine Clinical Cardiac Electrophysiology; ATTEND Internal Medicine Clinical Cardiac Electrophysiology
PROC: 02HK3JZ Insertion of Pacemaker Lead into Right Ventricle, Percutaneous Approach (ICD-10-PCS; 2018-04-08)
PROC: B517YZZ Fluoroscopy of Left Subclavian Vein using Other Contrast (ICD-10-PCS; 2018-04-08)
PROC: 0JH604Z Insertion of Pacemaker, Single Chamber into Chest Subcutaneous Tissue and Fascia, Open Approach (ICD-10-PCS; principal; 2018-04-08 08:00)
DX: I49.5 Sick sinus syndrome (principal); E46 Unspecified protein-calorie malnutrition; Z68.44 Body mass index [BMI] 60.0-69.9, adult; I48.91 Unspecified atrial fibrillation; E11.42 Type 2 diabetes mellitus with diabetic polyneuropathy; E11.65 Type 2 diabetes mellitus with hyperglycemia; E66.01 Morbid (severe) obesity due to excess calories; I10 Essential (primary) hypertension; G51.0 Bell's palsy; I87.2 Venous insufficiency (chronic) (peripheral); N40.0 Benign prostatic hyperplasia without lower urinary tract symptoms; Z79.4 Long term (current) use of insulin; Z82.49 Family history of ischemic heart disease and other diseases of the circulatory system; Z83.3 Family history of diabetes mellitus; Z79.01 Long term (current) use of anticoagulants; Z79.899 Other long term (current) drug therapy
CPT/HCPCS: 33207; 36415; 71045; 75820; 80048; 80061; 82962; 83036; 83735; 84443; 85027; 93005; 93306; A4565; C1786; C1892; C1893; C1898; J0330; J1580; J1644; J1815; J2250; J2704; J3010; J3490; J7050; Q9967

== ENCOUNTER 2018-06-30 10:51 | Inpatient (IN) | payer MEDICARE, MEDICAID ==
[~2018-06-30] VITALS: Ht 177.8 cm; Wt 176.0 kg
[~2018-06-30 10:51] MED LIST changes: +INSU100I28 SQ
[2018-06-30] MEDS ORDERED: ONDANSETRON HCL 4MG/2ML INJ IV STA (17:40)
[2018-06-30] MEDS ORDERED: FAMOTIDINE 20MG/2ML VIAL IV STA (17:40)
[2018-06-30] MEDS ORDERED: DILTIAZEM HCL 5MG/ML 5ML VIAL IV ONE ×2 (18:00→20:45)
[2018-06-30] MEDS ORDERED: ASPIRIN 81MG TABLET PO ONE (18:30)
[2018-06-30] MEDS ORDERED: DILTIAZEM HCL 30MG TABLET PO ONE ×2 (18:30→20:45)
[2018-06-30 18:37] LABS: CHLORIDE 92 mEq/L (98-107)
[2018-06-30 18:40] LABS: D-DIMER 1.03 mg/L FEU (<0.50); HEMATOCRIT. 44.5 % (42.0-52.0); HEMOGLOBIN. 14.2 g/dL (14.0-18.0); INR 1.3; MEAN CORPUSCULAR VOLUME 88.1 fL (80.0-94.0); PLATELET 181 x1000/uL (130-400); PROTHROMBIN TIME 12.7 sec (9.1-11.1); RED BLOOD CELL COUNT 5.05 mill/uL (4.7-6.1); RED CELL DISTRIBUTION WIDTH 14.7 % (11.6-14.6)
[2018-06-30 18:52] LABS: CLARITY URINE CLEAR (CLEAR); COLOR URINE YELLOW (YELLOW); KETONES URINE 1+ (NEGATIVE); LEUKOCYTE ESTERASE URINE NEGATIVE (NEGATIVE); NITRITE URINE NEGATIVE (NEGATIVE); OCCULT BLOOD URINE NEGATIVE (NEGATIVE); PROTEIN URINE TRACE (NEGATIVE); UROBILINOGEN URINE 0.2 E.U./dL (0.2-1.0)
[2018-06-30 18:56] LABS: PLATELET ESTIMATE NORMAL
[2018-06-30] MEDS ORDERED: INSULIN REGULAR 0.5UNIT/ML SYR(NEO) IV ONE (19:00)
[2018-06-30] MEDS ORDERED: VANCOMYCIN 1 G PREMIX 200 ML IV SCH (19:00)
[2018-06-30] MEDS ORDERED: PIPERACILLIN SODIUM/TAZOBACTAM 4.5 G in DEXT 5% WATER 100 ML IV SCH (19:00)
[2018-06-30] MEDS ORDERED: INSULIN REGULAR (HUMULIN R) UD 100 UNITS/ML SYR IV ONE (20:45)
[2018-06-30] MEDS ORDERED: GUAIFENESIN 200MG/10ML SUGAR FREE UDC PO PRN (21:15)
[2018-06-30] MEDS ORDERED: MAGNESIUM/ALUMINUM HYDROXIDE/SIMETHICONE 30ML UDC PO PRN (21:15)
[2018-06-30] MEDS ORDERED: ACETAMINOPHEN 325MG TABLET PO PRN (21:15)
[2018-06-30] MEDS ORDERED: LEVOFLOXACIN 500MG PREMIX 100 ML IV SCH (21:15)
[2018-06-30] MEDS ORDERED: NA PHOS,M-B/NA PHOS,DI-BA ENEMA 118ML PR PRN (21:15)
[2018-06-30] MEDS ORDERED: DIPHENHYDRAMINE 50MG/ML VIAL IV PRN (21:15)
[2018-06-30] MEDS ORDERED: CLONIDINE 0.1MG TABLET PO PRN (21:15)
[2018-06-30] MEDS ORDERED: LORAZEPAM 2MG/ML CPJ IV PRN (21:15)
[2018-06-30] MEDS ORDERED: INSULIN REGULAR (HUMULIN R) 300UNITS/3ML IV NR (21:15)
[2018-06-30] MEDS ORDERED: ONDANSETRON HCL 4MG/2ML INJ IV PRN (21:15)
[2018-06-30] MEDS: IPRATROPIUM/ALBUTEROL 0.5-3(2.5)MG/3ML NEB INH PRN (22:05)
[2018-06-30 22:13] LABS: BG BASE EXCESS 1.1 mmol/L (-2.0-2.0); BG BILEVEL POS AIRWAY PRESSURE 15/5; BG CARBOXYHEMOGLOBIN 1.3 % (0.5-1.5); BG DEOXYHEMOGLOBIN 1.8 % (0.0-5.0); BG FRACTION INSPIRED OXYGEN 40; BG HCO3 ACT 27.1 mmol/L (22.0-26.0); BG METHEMOGLOBIN 0.4 % (0.0-1.5); BG OXYGEN SATURATION 98.2 % (92.0-98.5); BG OXYHEMOGLOBIN 96.5 % (94.0-97.0); BG PH 7.369 (7.350-7.450); BG PO2 121.9 mmHg (75.0-100.0); BG SAMPLE SITE RIGHT RADIAL; BG TOTAL HEMOGLOBIN 13.7 g/dL (12.0-18.0); BG VENT MODE MASK - BIPAP
[2018-06-30] MEDS: MORPHINE SULFATE 4 MG/ML CPJ (NOT FOR IM USE) IV PRN (23:00)
[2018-07-01] MEDS: HYDROCODONE/ACETAMINOPHEN 5/325MG TABLET PO PRN ×2 (00:46→18:37)
[2018-07-01 02:00] VITALS: BP 128/43
[2018-07-01 04:00] VITALS: BP 105/56
[2018-07-01] MEDS ORDERED: DIGO125T20 MT (04:39)
[2018-07-01] MEDS ORDERED: FERR325T6 MT (04:39)
[2018-07-01] MEDS: LEVOFLOXACIN 500MG PREMIX 100 ML IV SCH (06:28)
[2018-07-01] MEDS: BLOOD SUGAR DIAGNOSTIC STRIP TEST SCH ×5 (06:28→21:00)
[2018-07-01] MEDS ORDERED: DEXTROSE 50% WATER 50ML SYRINGE IV PRN (06:30)
[2018-07-01] MEDS: INSULIN LISPRO 100 UNITS/ML SUBCUT SCH ×4 (06:46→23:38)
[2018-07-01 07:43] LABS: HEMATOCRIT. 39.5 % (42.0-52.0); HEMOGLOBIN. 12.6 g/dL (14.0-18.0); MEAN CORPUSCULAR HEMOGLOBIN 28.1 pg (28.0-32.0); MEAN PLATELET VOLUME 8.8 fl (7.4-10.4); PLATELET 142 x1000/uL (130-400); RED BLOOD CELL COUNT 4.48 mill/uL (4.7-6.1); RED CELL DISTRIBUTION WIDTH 14.2 % (11.6-14.6)
[2018-07-01 08:32] VITALS: BP 104/51
[2018-07-01 08:38] LABS: CHLORIDE 95 mEq/L (98-107)
[2018-07-01 08:47] LABS: LDL CHOLESTEROL 25 mg/dL (5-100)
[2018-07-01 08:49] LABS: HDL CHOLESTEROL 37 mg/dL (40-59); T4 FREE 1.54 ng/dL (0.76-1.46)
[2018-07-01] MEDS ORDERED: ENOXAPARIN 40MG/0.4ML SYR SUBCUT SCH (09:00)
[2018-07-01] MEDS: MORPHINE SULFATE 4 MG/ML CPJ (NOT FOR IM USE) IV PRN ×2 (09:11→23:44)
[2018-07-01] MEDS: ASPIRIN 81MG EC TABLET PO SCH (09:11)
[2018-07-01] MEDS ORDERED: METOPROLOL TARTRATE 25MG TABLET PO NR (11:45)
[2018-07-01 12:03] VITALS: BP 111/52
[2018-07-01] MEDS: FUROSEMIDE 40MG/4ML VIAL IV SCH ×2 (12:19→18:40)
[2018-07-01] MEDS ORDERED: SODIUM POLYSTYRENE SULFONATE 15 G/60 ML BOT PO NR (12:30)
[2018-07-01 12:59] LABS: PLATELET ESTIMATE NORMAL
[2018-07-01] MEDS ORDERED: INSULIN GLARGINE UD 100 UNITS/ML SYR SUBCUT SCH ×3 (15:00→23:33)
[2018-07-01 16:11] VITALS: BP 95/48
[2018-07-01] MEDS: TERAZOSIN HCL 5MG CAPSULE PO SCH (17:00)
[2018-07-01] MEDS ORDERED: IPRATROPIUM BROMIDE (0.02%) 0.5MG/2.5ML NEB HHN SCH (18:00)
[2018-07-01] MEDS: RIVAROXABAN 20 MG TABLET PO SCH (18:26)
[2018-07-01] MEDS: DIGOXIN 125MCG TABLET PO SCH (18:26)
[2018-07-01] MEDS: GLIPIZIDE 10MG TABLET PO SCH (18:27)
[2018-07-01] MEDS: FERROUS SULFATE 325MG TABLET PO SCH (18:27)
[2018-07-01] MEDS: ATORVASTATIN CALCIUM 40MG TABLET PO SCH (23:18)
[2018-07-01] MEDS: METOPROLOL TARTRATE 25MG TABLET PO SCH (23:19)
[2018-07-01] MEDS: LISINOPRIL 20MG TABLET PO SCH (23:42)
[2018-07-02] MEDS: INSULIN GLARGINE UD 100 UNITS/ML SYR SUBCUT SCH ×2 (01:48→21:09)
[2018-07-02 04:00] VITALS: BP 108/56
[2018-07-02 06:18] LABS: HEMATOCRIT. 37.2 % (42.0-52.0); MEAN CORPUSCULAR HEMOGLOBIN 28.3 pg (28.0-32.0); MEAN CORPUSCULAR VOLUME 87.7 fL (80.0-94.0); PLATELET 150 x1000/uL (130-400); RED BLOOD CELL COUNT 4.24 mill/uL (4.7-6.1); RED CELL DISTRIBUTION WIDTH 14.3 % (11.6-14.6)
[2018-07-02] MEDS: LEVOFLOXACIN 500MG PREMIX 100 ML IV SCH (06:21)
[2018-07-02 06:42] LABS: CHLORIDE 93 mEq/L (98-107)
[2018-07-02 07:03] LABS: DIGOXIN 0.8 ng/mL (0.9-2.0)
[2018-07-02] MEDS: GLIPIZIDE 10MG TABLET PO SCH ×2 (07:20→18:03)
[2018-07-02] MEDS: BLOOD SUGAR DIAGNOSTIC STRIP TEST SCH ×4 (07:42→21:00)
[2018-07-02] MEDS: FERROUS SULFATE 325MG TABLET PO SCH ×3 (07:50→17:22)
[2018-07-02 08:00] VITALS: BP 121/57
[2018-07-02] MEDS: AMLODIPINE 5MG TABLET PO SCH (09:00)
[2018-07-02] MEDS: FUROSEMIDE 40MG/4ML VIAL IV SCH ×2 (09:00→17:22)
[2018-07-02] MEDS: METOPROLOL TARTRATE 25MG TABLET PO SCH ×2 (09:00→21:04)
[2018-07-02] MEDS: LISINOPRIL 20MG TABLET PO SCH ×2 (09:00→21:03)
[2018-07-02] MEDS: ASPIRIN 81MG EC TABLET PO SCH (09:00)
[2018-07-02] MEDS: IPRATROPIUM BROMIDE (0.02%) 0.5MG/2.5ML NEB HHN SCH ×3 (09:01→21:02)
[2018-07-02 10:29] LABS: PLATELET ESTIMATE NORMAL
[2018-07-02 12:00] VITALS: BP 126/51
[2018-07-02] MEDS: MORPHINE SULFATE 4 MG/ML CPJ (NOT FOR IM USE) IV PRN ×2 (13:34→18:03)
[2018-07-02] MEDS: INSULIN LISPRO 100 UNITS/ML SUBCUT SCH ×3 (13:41→21:08)
[2018-07-02 16:00] VITALS: BP 121/52
[2018-07-02] MEDS: DIGOXIN 125MCG TABLET PO SCH (17:22)
[2018-07-02] MEDS: TERAZOSIN HCL 5MG CAPSULE PO SCH (17:22)
[2018-07-02] MEDS: RIVAROXABAN 20 MG TABLET PO SCH (17:22)
[2018-07-02 20:00] VITALS: BP 111/53
[2018-07-02] MEDS: ATORVASTATIN CALCIUM 40MG TABLET PO SCH (21:03)
[2018-07-03] VITALS: BP 99/48
[2018-07-03] MEDS: IPRATROPIUM BROMIDE (0.02%) 0.5MG/2.5ML NEB HHN SCH ×4 (00:56→21:06)
[2018-07-03] MEDS: BLOOD SUGAR DIAGNOSTIC STRIP TEST SCH ×4 (05:33→20:26)
[2018-07-03] MEDS: INSULIN LISPRO 100 UNITS/ML SUBCUT SCH ×4 (05:37→20:25)
[2018-07-03] MEDS: LEVOFLOXACIN 500MG PREMIX 100 ML IV SCH (05:39)
[2018-07-03 08:00] VITALS: BP 95/52
[2018-07-03 08:02] LABS: HEMATOCRIT. 34.8 % (42.0-52.0); HEMOGLOBIN. 11.5 g/dL (14.0-18.0); MEAN CORPUSCULAR HEMOGLOBIN 28.9 pg (28.0-32.0); MEAN CORPUSCULAR VOLUME 87.3 fL (80.0-94.0); MEAN PLATELET VOLUME 8.3 fl (7.4-10.4); PLATELET 154 x1000/uL (130-400); RED BLOOD CELL COUNT 3.99 mill/uL (4.7-6.1); RED CELL DISTRIBUTION WIDTH 13.7 % (11.6-14.6)
[2018-07-03] MEDS: METOPROLOL TARTRATE 25MG TABLET PO SCH ×2 (08:58→20:19)
[2018-07-03] MEDS: AMLODIPINE 5MG TABLET PO SCH (08:58)
[2018-07-03] MEDS: FUROSEMIDE 40MG/4ML VIAL IV SCH ×2 (08:59→17:00)
[2018-07-03] MEDS: LISINOPRIL 20MG TABLET PO SCH ×2 (08:59→20:19)
[2018-07-03] MEDS: GLIPIZIDE 10MG TABLET PO SCH ×2 (09:04→19:10)
[2018-07-03] MEDS: FERROUS SULFATE 325MG TABLET PO SCH ×3 (09:04→19:11)
[2018-07-03] MEDS: ASPIRIN 81MG EC TABLET PO SCH (09:04)
[2018-07-03 09:38] LABS: PLATELET ESTIMATE NORMAL
[2018-07-03] MEDS: INSULIN GLARGINE UD 100 UNITS/ML SYR SUBCUT SCH ×2 (10:35→22:10)
[2018-07-03] MEDS ORDERED: SODIUM CHLORIDE 0.9% 1000ML BAG (SEPSIS BOLUS) IV ONE (12:45)
[2018-07-03 12:52] VITALS: BP 95/52
[2018-07-03] MEDS ORDERED: SODIUM CHLORIDE 0.9% 500 ML IV SCH (13:00)
[2018-07-03] MEDS ORDERED: SODIUM CHLORIDE 0.9% 500 ML IV ONE (13:00)
[2018-07-03 16:40] VITALS: BP 142/57
[2018-07-03 17:00] VITALS: BP 99/43
[2018-07-03] MEDS: TERAZOSIN HCL 5MG CAPSULE PO SCH (17:00)
[2018-07-03] MEDS: RIVAROXABAN 20 MG TABLET PO SCH (19:10)
[2018-07-03] MEDS: DIGOXIN 125MCG TABLET PO SCH (19:10)
[2018-07-03] MEDS: ATORVASTATIN CALCIUM 40MG TABLET PO SCH (20:19)
[2018-07-03 20:40] VITALS: BP 106/53
[2018-07-04 00:37] VITALS: BP 103/51
[2018-07-04] MEDS: IPRATROPIUM BROMIDE (0.02%) 0.5MG/2.5ML NEB HHN SCH ×3 (01:44→14:09)
[2018-07-04 04:00] VITALS: BP 95/59
[2018-07-04] MEDS: INSULIN LISPRO 100 UNITS/ML SUBCUT SCH ×4 (05:38→21:40)
[2018-07-04] MEDS: BLOOD SUGAR DIAGNOSTIC STRIP TEST SCH ×4 (05:38→21:18)
[2018-07-04 06:16] LABS: BASOPHILS % 0.6 % (0.0-2.0); HEMATOCRIT. 34.7 % (42.0-52.0); HEMOGLOBIN. 11.2 g/dL (14.0-18.0); LYMPHOCYTES % 7.5 % (20.0-50.0); MEAN CORPUSCULAR HEMOGLOBIN 28.2 pg (28.0-32.0); MEAN PLATELET VOLUME 8.4 fl (7.4-10.4); MONOCYTES % 7.5 % (2.0-8.0); NEUTROPHILS % 82.4 % (40.0-76.0); PLATELET 179 x1000/uL (130-400); RED BLOOD CELL COUNT 3.99 mill/uL (4.7-6.1); RED CELL DISTRIBUTION WIDTH 14.1 % (11.6-14.6)
[2018-07-04 08:00] VITALS: BP 93/56
[2018-07-04] MEDS: METOPROLOL TARTRATE 25MG TABLET PO SCH ×2 (09:00→21:17)
[2018-07-04] MEDS: LISINOPRIL 20MG TABLET PO SCH ×2 (09:00→21:00)
[2018-07-04] MEDS: AMLODIPINE 5MG TABLET PO SCH (09:00)
[2018-07-04] MEDS: ASPIRIN 81MG EC TABLET PO SCH (09:11)
[2018-07-04] MEDS: FUROSEMIDE 40MG/4ML VIAL IV SCH ×2 (09:11→18:39)
[2018-07-04] MEDS: GLIPIZIDE 10MG TABLET PO SCH ×2 (09:12→18:39)
[2018-07-04] MEDS: FERROUS SULFATE 325MG TABLET PO SCH ×3 (09:12→18:39)
[2018-07-04] MEDS: LEVOFLOXACIN 500MG TABLET PO SCH (09:12)
[2018-07-04] MEDS: INSULIN GLARGINE UD 100 UNITS/ML SYR SUBCUT SCH ×2 (09:15→21:40)
[2018-07-04 12:36] VITALS: BP 101/55
[2018-07-04 16:35] VITALS: BP 114/57
[2018-07-04] MEDS: TERAZOSIN HCL 5MG CAPSULE PO SCH (17:00)
[2018-07-04] MEDS: DIGOXIN 125MCG TABLET PO SCH (18:39)
[2018-07-04] MEDS: RIVAROXABAN 20 MG TABLET PO SCH (18:39)
[2018-07-04 20:00] VITALS: BP 114/65
[2018-07-04] MEDS: IPRATROPIUM/ALBUTEROL 0.5-3(2.5)MG/3ML NEB INH PRN (20:54)
[2018-07-04] MEDS: ATORVASTATIN CALCIUM 40MG TABLET PO SCH (21:17)
[2018-07-05] MEDS: GLIPIZIDE 10MG TABLET PO SCH ×2 (06:14→09:37)
[2018-07-05] MEDS: BLOOD SUGAR DIAGNOSTIC STRIP TEST SCH ×4 (06:14→21:00)
[2018-07-05 06:57] LABS: BASOPHILS % 0.6 % (0.0-2.0); EOSINOPHILS % 2.3 % (0.0-5.0); HEMATOCRIT. 37.2 % (42.0-52.0); HEMOGLOBIN. 12.1 g/dL (14.0-18.0); LYMPHOCYTES % 8.7 % (20.0-50.0); MEAN CORPUSCULAR HEMOGLOBIN 28.4 pg (28.0-32.0); MEAN CORPUSCULAR VOLUME 87.6 fL (80.0-94.0); MONOCYTES % 9.1 % (2.0-8.0); NEUTROPHILS % 79.3 % (40.0-76.0); PLATELET 206 x1000/uL (130-400); RED BLOOD CELL COUNT 4.25 mill/uL (4.7-6.1)
[2018-07-05 07:37] LABS: CHLORIDE 97 mEq/L (98-107)
[2018-07-05] MEDS: IPRATROPIUM BROMIDE (0.02%) 0.5MG/2.5ML NEB HHN SCH ×3 (08:11→21:17)
[2018-07-05 08:15] VITALS: BP 106/48
[2018-07-05] MEDS: INSULIN LISPRO 100 UNITS/ML SUBCUT SCH ×4 (09:29→22:14)
[2018-07-05] MEDS: FUROSEMIDE 40MG/4ML VIAL IV SCH ×2 (09:29→18:21)
[2018-07-05] MEDS: FERROUS SULFATE 325MG TABLET PO SCH ×3 (09:30→18:24)
[2018-07-05] MEDS: METOPROLOL TARTRATE 25MG TABLET PO SCH ×2 (09:36→22:11)
[2018-07-05] MEDS: LISINOPRIL 20MG TABLET PO SCH ×2 (09:36→22:10)
[2018-07-05] MEDS: AMLODIPINE 5MG TABLET PO SCH (09:36)
[2018-07-05] MEDS: LEVOFLOXACIN 500MG TABLET PO SCH (09:37)
[2018-07-05] MEDS: ASPIRIN 81MG EC TABLET PO SCH (09:37)
[2018-07-05] MEDS: INSULIN GLARGINE UD 100 UNITS/ML SYR SUBCUT SCH ×2 (09:56→22:14)
[2018-07-05 12:00] VITALS: BP 109/54
[2018-07-05] MEDS: DOCUSATE SODIUM 100MG CAPSULE PO PRN (12:37)
[2018-07-05 16:00] VITALS: BP 112/55
[2018-07-05] MEDS: DIGOXIN 125MCG TABLET PO SCH (18:24)
[2018-07-05] MEDS: TERAZOSIN HCL 5MG CAPSULE PO SCH (18:24)
[2018-07-05] MEDS: RIVAROXABAN 20 MG TABLET PO SCH (18:33)
[2018-07-05 20:00] VITALS: BP 111/55
[2018-07-05] MEDS: ATORVASTATIN CALCIUM 40MG TABLET PO SCH (22:09)
[2018-07-06 00:02] VITALS: BP 102/53
[2018-07-06] MEDS: IPRATROPIUM BROMIDE (0.02%) 0.5MG/2.5ML NEB HHN SCH ×2 (03:49→08:09)
[2018-07-06 04:00] VITALS: BP 107/56
[2018-07-06] MEDS: BLOOD SUGAR DIAGNOSTIC STRIP TEST SCH ×4 (07:20→20:53)
[2018-07-06] MEDS: FUROSEMIDE 40MG/4ML VIAL IV SCH ×2 (08:24→17:07)
[2018-07-06] MEDS: LEVOFLOXACIN 500MG TABLET PO SCH (08:24)
[2018-07-06] MEDS: ASPIRIN 81MG EC TABLET PO SCH (08:25)
[2018-07-06] MEDS: GLIPIZIDE 10MG TABLET PO SCH ×2 (08:25→17:07)
[2018-07-06] MEDS: FERROUS SULFATE 325MG TABLET PO SCH ×3 (08:25→17:07)
[2018-07-06] MEDS: INSULIN LISPRO 100 UNITS/ML SUBCUT SCH ×4 (08:27→21:31)
[2018-07-06] MEDS: METOPROLOL TARTRATE 25MG TABLET PO SCH ×2 (08:28→20:49)
[2018-07-06] MEDS: LISINOPRIL 20MG TABLET PO SCH ×2 (08:29→20:53)
[2018-07-06] MEDS: AMLODIPINE 5MG TABLET PO SCH (08:29)
[2018-07-06 08:30] VITALS: BP 94/56
[2018-07-06] MEDS: INSULIN GLARGINE UD 100 UNITS/ML SYR SUBCUT SCH ×2 (12:14→22:33)
[2018-07-06 12:30] VITALS: BP 94/56
[2018-07-06 16:12] VITALS: BP 106/58
[2018-07-06] MEDS: TERAZOSIN HCL 5MG CAPSULE PO SCH (17:07)
[2018-07-06] MEDS: RIVAROXABAN 20 MG TABLET PO SCH (17:07)
[2018-07-06] MEDS: DOCUSATE SODIUM 100MG CAPSULE PO PRN (17:24)
[2018-07-06] MEDS: DIGOXIN 125MCG TABLET PO SCH (17:55)
[2018-07-06 20:40] VITALS: BP 104/60
[2018-07-06] MEDS: ATORVASTATIN CALCIUM 40MG TABLET PO SCH (21:32)
[2018-07-07 00:13] VITALS: BP 102/47
[2018-07-07 04:44] VITALS: BP 107/52
[2018-07-07] MEDS: BLOOD SUGAR DIAGNOSTIC STRIP TEST SCH ×3 (06:25→17:20)
[2018-07-07] MEDS: GLIPIZIDE 10MG TABLET PO SCH ×2 (06:25→17:20)
[2018-07-07 07:33] LABS: BASOPHILS % 0.8 % (0.0-2.0); EOSINOPHILS % 3.3 % (0.0-5.0); HEMATOCRIT. 36.9 % (42.0-52.0); HEMOGLOBIN. 11.9 g/dL (14.0-18.0); LYMPHOCYTES % 10.5 % (20.0-50.0); MEAN CORPUSCULAR VOLUME 86.6 fL (80.0-94.0); MEAN PLATELET VOLUME 7.9 fl (7.4-10.4); MONOCYTES % 7.2 % (2.0-8.0); NEUTROPHILS % 78.2 % (40.0-76.0); PLATELET 240 x1000/uL (130-400); RED BLOOD CELL COUNT 4.27 mill/uL (4.7-6.1); RED CELL DISTRIBUTION WIDTH 14.4 % (11.6-14.6)
[2018-07-07 08:00] VITALS: BP 113/62
[2018-07-07] MEDS: AMLODIPINE 5MG TABLET PO SCH (08:35)
[2018-07-07] MEDS: FUROSEMIDE 40MG/4ML VIAL IV SCH ×2 (08:35→17:00)
[2018-07-07] MEDS: METOPROLOL TARTRATE 25MG TABLET PO SCH (08:36)
[2018-07-07] MEDS: LISINOPRIL 20MG TABLET PO SCH (08:36)
[2018-07-07] MEDS: FERROUS SULFATE 325MG TABLET PO SCH ×3 (08:36→17:50)
[2018-07-07] MEDS: ASPIRIN 81MG EC TABLET PO SCH (08:37)
[2018-07-07] MEDS: LEVOFLOXACIN 500MG TABLET PO SCH (08:37)
[2018-07-07] MEDS: INSULIN LISPRO 100 UNITS/ML SUBCUT SCH ×3 (08:40→17:50)
[2018-07-07] MEDS: INSULIN GLARGINE UD 100 UNITS/ML SYR SUBCUT SCH (10:26)
[2018-07-07 12:06] VITALS: BP 115/62
[2018-07-07] MEDS: IPRATROPIUM BROMIDE (0.02%) 0.5MG/2.5ML NEB HHN SCH (15:01)
[2018-07-07 16:00] VITALS: BP 110/51
[2018-07-07 16:54] VITALS: BP 110/54
[2018-07-07] MEDS: RIVAROXABAN 20 MG TABLET PO SCH (17:00)
[2018-07-07] MEDS: TERAZOSIN HCL 5MG CAPSULE PO SCH (17:00)
[2018-07-07] MEDS: DIGOXIN 125MCG TABLET PO SCH (18:00)
== END 2018-07-07 18:57 | disposition home health service (06) | DRG 189 ==
LOC: ER 10:51 → 6WST 18:34 → EDBEDREQ 18:40 → EDBEDREQSVC 18:40 → ENRESERV 23:51 → 6WST 07-01 01:45
PROVIDERS: ADMIT Internal Medicine; ATTEND Internal Medicine
PROC: 5A09357 Assistance with Respiratory Ventilation, Less than 24 Consecutive Hours, Continuous Positive Airway Pressure (ICD-10-PCS; principal; 2018-06-30)
DX: J96.02 Acute respiratory failure with hypercapnia (principal); I50.33 Acute on chronic diastolic (congestive) heart failure; E44.1 Mild protein-calorie malnutrition; I48.1 Persistent atrial fibrillation; Z68.43 Body mass index [BMI] 50.0-59.9, adult; E66.2 Morbid (severe) obesity with alveolar hypoventilation; I48.92 Unspecified atrial flutter; N17.9 Acute kidney failure, unspecified; I11.0 Hypertensive heart disease with heart failure; K80.20 Calculus of gallbladder without cholecystitis without obstruction; D64.9 Anemia, unspecified; G47.33 Obstructive sleep apnea (adult) (pediatric); E87.5 Hyperkalemia; E78.5 Hyperlipidemia, unspecified; I25.10 Atherosclerotic heart disease of native coronary artery without angina pectoris; R07.89 Other chest pain; E80.4 Gilbert syndrome; E11.65 Type 2 diabetes mellitus with hyperglycemia; Z53.20 Procedure and treatment not carried out because of patient's decision for unspecified reasons; K76.0 Fatty (change of) liver, not elsewhere classified; Z79.4 Long term (current) use of insulin; Z99.81 Dependence on supplemental oxygen; Z79.01 Long term (current) use of anticoagulants; Z95.0 Presence of cardiac pacemaker; Z79.899 Other long term (current) drug therapy; Z79.84 Long term (current) use of oral hypoglycemic drugs
CPT/HCPCS: 36415; 36600; 71045; 76700; 80048; 80061; 80162; 82010; 82375; 82805; 82962; 83036; 83605; 83735; 83880; 84439; 84443; 84484; 85379; 93005; 93306; 93970; 94640; 94644; 94660; 96374; 96375; 97116; 97162; 97166; 99285; C1893; J1650; J1815; J1940; J1956; J2060; J2270; J2405; J2543; J3370; J3490; J7040; J7060; J7620

== ENCOUNTER → 2019-06-25 | Day surgery (SDC) | payer MEDICARE, MEDICAID ==
[~2019-06-25] VITALS: Ht 175.3 cm; Wt 168.7 kg
[~2019-06-25] MED LIST changes: +ACETAMINOPHEN 325MG TABLET PO PRN; +ASPI-1497 MT; +DIGO125T20 MT; +FENTANYL CITRATE/PF 50MCG/ML 2ML VIAL ONE; +FERR325T6 MT; +HEPARIN SODIUM 1,000 UNIT/1ML VIAL IV ONE; +IODIXANOL 320MG/ML 100 ML BOTTLE IV ONE; +IOHEXOL-300 100 ML BOTTLE ONE; +LIDOCAINE HCL 1% 20ML VIAL (Pyxis) INJ ONE; +LIP40 MT; +MIDAZOLAM HCL 2 MG/2 ML VIAL ONE; +NICARDIPINE 100MCG/ML 10ML VIAL (CATH LAB) IV ONE; +NITROGLYCERIN 50MCG/ML 10ML VIAL (CATH LAB) IV ONE; +NPH,100V SQ; +ONDANSETRON HCL 4MG/2ML INJ IV PRN
== END | disposition home or self-care (01) ==
LOC: CCL 06:17
PROVIDERS: ATTEND Specialist
DX: R07.9 Chest pain, unspecified (principal); R94.39 Abnormal result of other cardiovascular function study; I25.110 Atherosclerotic heart disease of native coronary artery with unstable angina pectoris; E11.9 Type 2 diabetes mellitus without complications; I10 Essential (primary) hypertension; J44.9 Chronic obstructive pulmonary disease, unspecified; E78.5 Hyperlipidemia, unspecified; E66.01 Morbid (severe) obesity due to excess calories; I48.19 Other persistent atrial fibrillation; Z95.0 Presence of cardiac pacemaker; Z79.899 Other long term (current) drug therapy; Z79.4 Long term (current) use of insulin; Z79.82 Long term (current) use of aspirin; Z68.43 Body mass index [BMI] 50.0-59.9, adult; Z83.3 Family history of diabetes mellitus
CPT/HCPCS: 82962; 93458; C1769; C1887; C1893; J1644; J2250; J3010; J3490; Q9967

== ENCOUNTER 2020-10-21 15:01 | Inpatient (IN) | payer MEDICARE, MEDICAID ==
[~2020-10-21] VITALS: Ht 175.3 cm; Wt 204.7 kg
[~2020-10-21 15:01] MED LIST changes: -ACETAMINOPHEN 325MG TABLET PO PRN; -FENTANYL CITRATE/PF 50MCG/ML 2ML VIAL ONE; -HEPARIN SODIUM 1,000 UNIT/1ML VIAL IV ONE; -IODIXANOL 320MG/ML 100 ML BOTTLE IV ONE; -IOHEXOL-300 100 ML BOTTLE ONE; -LIDOCAINE HCL 1% 20ML VIAL (Pyxis) INJ ONE; -LISI-604 PO; +LISI20TA31 PO; -MIDAZOLAM HCL 2 MG/2 ML VIAL ONE; -NICARDIPINE 100MCG/ML 10ML VIAL (CATH LAB) IV ONE; -NITROGLYCERIN 50MCG/ML 10ML VIAL (CATH LAB) IV ONE; -ONDANSETRON HCL 4MG/2ML INJ IV PRN
[2020-10-21] MEDS ORDERED: FUROSEMIDE 100MG/10ML VIAL IVP ONE (16:15)
[2020-10-21 16:50] LABS: BASOPHILS % 0.8 % (0.0-2.0); HEMATOCRIT. 40.3 % (42.0-52.0); HEMOGLOBIN. 13.1 g/dL (14.0-18.0); LYMPHOCYTES % 8.3 % (20.0-50.0); MEAN CORPUSCULAR HEMOGLOBIN 27.2 pg (28.0-32.0); MEAN CORPUSCULAR VOLUME 83.7 fL (80.0-94.0); MEAN PLATELET VOLUME 8.1 fl (7.4-10.4); NEUTROPHILS % 82.9 % (40.0-76.0); PLATELET 211 x1000/uL (130-400); RED BLOOD CELL COUNT 4.82 mill/uL (4.7-6.1); RED CELL DISTRIBUTION WIDTH 16.8 % (11.6-14.6)
[2020-10-21 16:59] LABS: CHLORIDE 98 mEq/L (98-107)
[2020-10-21] MEDS ORDERED: AMPICILLIN SOD/SULBACTAM NA 3 G in SODIUM CHLORIDE 0.9% 100 ML IV SCH (18:45)
[2020-10-21] MEDS ORDERED: MAGNESIUM/ALUMINUM HYDROXIDE/SIMETHICONE 30ML UDC PO PRN (21:00)
[2020-10-21] MEDS ORDERED: DOCUSATE SODIUM 100MG CAPSULE PO PRN (21:00)
[2020-10-21] MEDS ORDERED: ONDANSETRON HCL 4MG/2ML INJ IV PRN (21:00)
[2020-10-21] MEDS ORDERED: CLONIDINE 0.1MG TABLET PO PRN (21:00)
[2020-10-21] MEDS ORDERED: ACETAMINOPHEN 325MG TABLET PO PRN (21:00)
[2020-10-21] MEDS ORDERED: HYDROCODONE/ACETAMINOPHEN 5/325MG TABLET PO PRN (21:00)
[2020-10-21 21:25] VITALS: BP 160/92
[2020-10-21] MEDS ORDERED: DEXTROSE 50% WATER 50ML SYRINGE IV PRN (21:30)
[2020-10-21] MEDS ORDERED: ATORVASTATIN CALCIUM 40MG TABLET PO SCH (22:00)
[2020-10-21] MEDS ORDERED: LISINOPRIL 20MG TABLET PO SCH (22:00)
[2020-10-21] MEDS ORDERED: RIVAROXABAN 20 MG TABLET PO SCH (23:00)
[2020-10-22] VITALS (8 sets, daily range): BP systolic 90–134; BP diastolic 39–79
[2020-10-22 00:36] LABS: BG BASE EXCESS 10.2 mmol/L (-2.0-2.0); BG CARBOXYHEMOGLOBIN 0.8 % (0.5-1.5); BG DEOXYHEMOGLOBIN 2.3 % (0.0-5.0); BG FRACTION INSPIRED OXYGEN 44; BG HCO3 ACT 40.9 mmol/L (22.0-26.0); BG METHEMOGLOBIN 0.4 % (0.0-1.5); BG OXYGEN SATURATION 97.7 % (92.0-98.5); BG OXYHEMOGLOBIN 96.5 % (94.0-97.0); BG PCO2 89.4 mmHg (35.0-45.0); BG PH 7.278 (7.350-7.450); BG PO2 112.7 mmHg (75.0-100.0); BG SAMPLE SITE LEFT RADIAL; BG TOTAL HEMOGLOBIN 13.9 g/dL (12.0-18.0); BG VENT MODE NASAL CANNULA
[2020-10-22] MEDS ORDERED: VANCOMYCIN 2,000 MG in DEXT 5% WATER 500 ML IV NR (01:00)
[2020-10-22 06:06] LABS: EOSINOPHILS % 1.6 % (0.0-5.0); HEMATOCRIT. 37.4 % (42.0-52.0); HEMOGLOBIN. 12.3 g/dL (14.0-18.0); LYMPHOCYTES % 9.7 % (20.0-50.0); MEAN CORPUSCULAR HEMOGLOBIN 27.9 pg (28.0-32.0); MEAN CORPUSCULAR VOLUME 84.7 fL (80.0-94.0); MEAN PLATELET VOLUME 7.9 fl (7.4-10.4); MONOCYTES % 7.9 % (2.0-8.0); NEUTROPHILS % 79.8 % (40.0-76.0); PLATELET 179 x1000/uL (130-400); RED BLOOD CELL COUNT 4.41 mill/uL (4.7-6.1)
[2020-10-22 06:12] LABS: BG BASE EXCESS 8.2 mmol/L (-2.0-2.0); BG CARBOXYHEMOGLOBIN 0.8 % (0.5-1.5); BG DEOXYHEMOGLOBIN 4.4 % (0.0-5.0); BG FRACTION INSPIRED OXYGEN 35; BG HCO3 ACT 37.8 mmol/L (22.0-26.0); BG METHEMOGLOBIN 0.2 % (0.0-1.5); BG OXYGEN SATURATION 95.6 % (92.0-98.5); BG OXYHEMOGLOBIN 94.6 % (94.0-97.0); BG PCO2 79.6 mmHg (35.0-45.0); BG PH 7.294 (7.350-7.450); BG PO2 87.1 mmHg (75.0-100.0); BG SAMPLE SITE RIGHT RADIAL; BG TOTAL HEMOGLOBIN 13.3 g/dL (12.0-18.0); BG VENT MODE MASK - BIPAP
[2020-10-22 06:32] LABS: CHLORIDE 98 mEq/L (98-107)
[2020-10-22 06:46] LABS: LDL CHOLESTEROL 23 mg/dL (5-100)
[2020-10-22 06:48] LABS: HDL CHOLESTEROL 33 mg/dL (40-59)
[2020-10-22] MEDS: BLOOD SUGAR DIAGNOSTIC STRIP TEST SCH ×4 (07:20→20:34)
[2020-10-22] MEDS: INSULIN LISPRO 100 UNITS/ML SUBCUT SCH ×4 (07:50→21:40)
[2020-10-22] MEDS ORDERED: GLIPIZIDE 10MG TABLET PO SCH (09:00)
[2020-10-22] MEDS ORDERED: FUROSEMIDE 40MG/4ML VIAL IV SCH (09:00)
[2020-10-22] MEDS ORDERED: AMLODIPINE 5MG TABLET PO SCH (09:00)
[2020-10-22] MEDS ORDERED: METOPROLOL TARTRATE 25MG TABLET PO SCH (09:00)
[2020-10-22] MEDS ORDERED: ASPIRIN 81MG EC TABLET PO SCH (09:00)
[2020-10-22 11:34] LABS: BG BASE EXCESS 9.5 mmol/L (-2.0-2.0); BG CARBOXYHEMOGLOBIN 0.9 % (0.5-1.5); BG DEOXYHEMOGLOBIN 6.9 % (0.0-5.0); BG FRACTION INSPIRED OXYGEN 35; BG HCO3 ACT 38.6 mmol/L (22.0-26.0); BG METHEMOGLOBIN 0.1 % (0.0-1.5); BG OXYHEMOGLOBIN 92.1 % (94.0-97.0); BG PCO2 75.6 mmHg (35.0-45.0); BG PH 7.326 (7.350-7.450); BG PO2 68.7 mmHg (75.0-100.0); BG SAMPLE SITE RIGHT RADIAL; BG TOTAL HEMOGLOBIN 13.7 g/dL (12.0-18.0); BG TOTAL RESPIRATORY RATE 29 b/min; BG VENT MODE MASK - BIPAP
[2020-10-22] MEDS ORDERED: CLONIDINE 0.1MG TABLET PO PRN (12:00)
[2020-10-22] MEDS ORDERED: DOCUSATE SODIUM 100MG CAPSULE PO PRN (12:00)
[2020-10-22] MEDS ORDERED: ONDANSETRON HCL 4MG/2ML INJ IV PRN (12:00)
[2020-10-22] MEDS ORDERED: HYDROCODONE/ACETAMINOPHEN 5/325MG TABLET PO PRN (12:00)
[2020-10-22] MEDS ORDERED: ACETAMINOPHEN 325MG TABLET PO PRN (12:00)
[2020-10-22] MEDS ORDERED: MAGNESIUM/ALUMINUM HYDROXIDE/SIMETHICONE 30ML UDC PO PRN (12:00)
[2020-10-22] MEDS: FUROSEMIDE 40MG/4ML VIAL IVP SCH (12:29)
[2020-10-22] MEDS: ASPIRIN 81MG TABLET PO SCH (12:29)
[2020-10-22] MEDS: INSULIN GLARGINE UD 100 UNITS/ML SYR SUBCUT SCH ×2 (12:30→21:40)
[2020-10-22] MEDS ORDERED: IPRATROPIUM/ALBUTEROL 0.5-3(2.5)MG/3ML NEB HHN PRN (14:45)
[2020-10-22] MEDS: IPRATROPIUM/ALBUTEROL 0.5-3(2.5)MG/3ML NEB HHN SCH ×2 (16:00→20:00)
[2020-10-22] MEDS ORDERED: TERAZOSIN HCL 5MG CAPSULE PO SCH (17:00)
[2020-10-22] MEDS ORDERED: DIGOXIN 125MCG TABLET PO SCH (18:00)
[2020-10-22] MEDS ORDERED: VANCOMYCIN 1500MG in DEXTROSE 5% WATER 250ML IV SCH (18:00)
[2020-10-22] MEDS: RIVAROXABAN 10 MG TABLET PO SCH (18:02)
[2020-10-22] MEDS: DIGOXIN 125MCG TABLET PO SCH (18:03)
[2020-10-22] MEDS: LISINOPRIL 20MG TABLET PO SCH (20:34)
[2020-10-22] MEDS: TERAZOSIN HCL 5MG CAPSULE PO SCH (20:34)
[2020-10-22] MEDS: METOPROLOL TARTRATE 25MG TABLET PO SCH (21:00)
[2020-10-23] VITALS: BP 101/58
[2020-10-23] MEDS: IPRATROPIUM/ALBUTEROL 0.5-3(2.5)MG/3ML NEB HHN SCH ×6 (00:46→20:32)
[2020-10-23 04:00] VITALS: BP 100/58
[2020-10-23 05:51] LABS: CHLORIDE 99 mEq/L (98-107)
[2020-10-23 06:27] LABS: BASOPHILS % 0.7 % (0.0-2.0); EOSINOPHILS % 1.6 % (0.0-5.0); HEMATOCRIT. 39.7 % (42.0-52.0); HEMOGLOBIN. 12.9 g/dL (14.0-18.0); LYMPHOCYTES % 10.8 % (20.0-50.0); MEAN CORPUSCULAR HEMOGLOBIN 27.3 pg (28.0-32.0); MEAN CORPUSCULAR VOLUME 84.4 fL (80.0-94.0); MEAN PLATELET VOLUME 7.8 fl (7.4-10.4); MONOCYTES % 6.8 % (2.0-8.0); NEUTROPHILS % 80.1 % (40.0-76.0); PLATELET 190 x1000/uL (130-400); RED CELL DISTRIBUTION WIDTH 16.5 % (11.6-14.6)
[2020-10-23] MEDS: BLOOD SUGAR DIAGNOSTIC STRIP TEST SCH ×4 (08:00→21:00)
[2020-10-23 08:07] VITALS: BP 94/61
[2020-10-23] MEDS: METOPROLOL TARTRATE 25MG TABLET PO SCH (09:00)
[2020-10-23] MEDS: FUROSEMIDE 40MG/4ML VIAL IVP SCH (09:00)
[2020-10-23] MEDS: LISINOPRIL 20MG TABLET PO SCH ×2 (09:00→22:04)
[2020-10-23] MEDS: ASPIRIN 81MG TABLET PO SCH (09:53)
[2020-10-23] MEDS: INSULIN LISPRO 100 UNITS/ML SUBCUT SCH ×4 (09:56→22:03)
[2020-10-23] MEDS: INSULIN GLARGINE UD 100 UNITS/ML SYR SUBCUT SCH ×2 (09:56→22:03)
[2020-10-23 10:48] LABS: BG BASE EXCESS 7.9 mmol/L (-2.0-2.0); BG CARBOXYHEMOGLOBIN 0.5 % (0.5-1.5); BG DEOXYHEMOGLOBIN 5.3 % (0.0-5.0); BG FRACTION INSPIRED OXYGEN 44; BG HCO3 ACT 35.8 mmol/L (22.0-26.0); BG METHEMOGLOBIN 0.2 % (0.0-1.5); BG OXYGEN SATURATION 94.7 % (92.0-98.5); BG PCO2 66.6 mmHg (35.0-45.0); BG PH 7.348 (7.350-7.450); BG PO2 75.5 mmHg (75.0-100.0); BG SAMPLE SITE RIGHT RADIAL; BG TOTAL HEMOGLOBIN 12.7 g/dL (12.0-18.0); BG VENT MODE NASAL CANNULA
[2020-10-23 11:46] VITALS: BP 95/53
[2020-10-23] MEDS: VANCOMYCIN 1250MG in DEXTROSE 5% WATER 250ML IV SCH (14:19)
[2020-10-23 16:04] VITALS: BP 100/56
[2020-10-23] MEDS: RIVAROXABAN 10 MG TABLET PO SCH (17:57)
[2020-10-23] MEDS: DIGOXIN 125MCG TABLET PO SCH (17:59)
[2020-10-23 20:00] VITALS: BP 120/67
[2020-10-23] MEDS: CARVEDILOL 6.25 MG TABLET PO SCH (22:02)
[2020-10-23] MEDS: TERAZOSIN HCL 5MG CAPSULE PO SCH (22:04)
[2020-10-23] MEDS ORDERED: BUME2TAB7 MT (22:39)
[2020-10-23] MEDS ORDERED: FURO-152 PO (22:39)
[2020-10-24] MEDS: IPRATROPIUM/ALBUTEROL 0.5-3(2.5)MG/3ML NEB HHN SCH ×6 (00:07→21:17)
[2020-10-24 00:14] VITALS: BP 118/64
[2020-10-24 06:34] LABS: HEMATOCRIT. 37.4 % (42.0-52.0); MEAN CORPUSCULAR HEMOGLOBIN 27.1 pg (28.0-32.0); MEAN CORPUSCULAR VOLUME 84.8 fL (80.0-94.0); MEAN PLATELET VOLUME 8.2 fl (7.4-10.4); PLATELET 181 x1000/uL (130-400); RED BLOOD CELL COUNT 4.41 mill/uL (4.7-6.1); RED CELL DISTRIBUTION WIDTH 16.6 % (11.6-14.6)
[2020-10-24] MEDS: BLOOD SUGAR DIAGNOSTIC STRIP TEST SCH ×4 (06:39→20:38)
[2020-10-24] MEDS: INSULIN LISPRO 100 UNITS/ML SUBCUT SCH ×4 (07:50→21:23)
[2020-10-24 08:00] VITALS: BP 122/68
[2020-10-24] MEDS: ASPIRIN 81MG TABLET PO SCH (08:35)
[2020-10-24] MEDS: LISINOPRIL 20MG TABLET PO SCH ×2 (08:36→21:19)
[2020-10-24] MEDS: CARVEDILOL 6.25 MG TABLET PO SCH ×2 (08:36→21:15)
[2020-10-24] MEDS: INSULIN GLARGINE UD 100 UNITS/ML SYR SUBCUT SCH ×2 (10:00→21:23)
[2020-10-24 12:00] VITALS: BP 116/76
[2020-10-24] MEDS: VANCOMYCIN 1250MG in DEXTROSE 5% WATER 250ML IV SCH (12:38)
[2020-10-24] MEDS: FUROSEMIDE 40MG/4ML VIAL IVP SCH (12:38)
[2020-10-24 13:22] LABS: PLATELET ESTIMATE NORMAL
[2020-10-24 16:00] VITALS: BP 109/70
[2020-10-24] MEDS: DIGOXIN 125MCG TABLET PO SCH (18:34)
[2020-10-24] MEDS: RIVAROXABAN 20 MG TABLET PO SCH (18:34)
[2020-10-24 20:37] VITALS: BP 111/63
[2020-10-24] MEDS: TERAZOSIN HCL 5MG CAPSULE PO SCH (21:15)
[2020-10-25] VITALS: BP 103/60
[2020-10-25] MEDS: IPRATROPIUM/ALBUTEROL 0.5-3(2.5)MG/3ML NEB HHN SCH ×4 (01:14→14:43)
[2020-10-25 04:00] VITALS: BP 106/61
[2020-10-25 06:09] LABS: BASOPHILS % 0.7 % (0.0-2.0); EOSINOPHILS % 3.6 % (0.0-5.0); HEMATOCRIT. 36.7 % (42.0-52.0); HEMOGLOBIN. 11.7 g/dL (14.0-18.0); LYMPHOCYTES % 11.8 % (20.0-50.0); MEAN CORPUSCULAR HEMOGLOBIN 26.9 pg (28.0-32.0); MEAN CORPUSCULAR VOLUME 84.2 fL (80.0-94.0); MEAN PLATELET VOLUME 7.9 fl (7.4-10.4); MONOCYTES % 7.3 % (2.0-8.0); NEUTROPHILS % 76.6 % (40.0-76.0); PLATELET 174 x1000/uL (130-400); RED BLOOD CELL COUNT 4.35 mill/uL (4.7-6.1); RED CELL DISTRIBUTION WIDTH 16.7 % (11.6-14.6)
[2020-10-25] MEDS: BLOOD SUGAR DIAGNOSTIC STRIP TEST SCH ×2 (06:30→12:20)
[2020-10-25] MEDS: INSULIN LISPRO 100 UNITS/ML SUBCUT SCH ×2 (06:30→12:43)
[2020-10-25 07:05] LABS: DIGOXIN 1.4 ng/mL (0.9-2.0)
[2020-10-25 08:00] VITALS: BP 99/60
[2020-10-25] MEDS: CARVEDILOL 6.25 MG TABLET PO SCH (09:00)
[2020-10-25] MEDS: LISINOPRIL 20MG TABLET PO SCH (09:00)
[2020-10-25] MEDS: FUROSEMIDE 40MG/4ML VIAL IVP SCH (09:00)
[2020-10-25] MEDS: ASPIRIN 81MG TABLET PO SCH (10:15)
[2020-10-25] MEDS: INSULIN GLARGINE UD 100 UNITS/ML SYR SUBCUT SCH (10:16)
[2020-10-25 12:00] VITALS: BP 107/65
[2020-10-25] MEDS: VANCOMYCIN 1250MG in DEXTROSE 5% WATER 250ML IV SCH (12:02)
[2020-10-25 16:00] VITALS: BP 101/60
[2020-10-25] MEDS: RIVAROXABAN 20 MG TABLET PO SCH (18:04)
[2020-10-25] MEDS: DIGOXIN 125MCG TABLET PO SCH (18:04)
== END 2020-10-25 18:27 | disposition home or self-care (01) | DRG 291 ==
LOC: ER 15:01 → 6WST 19:18 → EDBEDREQ 19:25 → EDBEDREQTM 19:25 → ENRESERV 19:39 → EDBEDREQ 20:55
PROVIDERS: ADMIT Family Medicine Adult Medicine; ATTEND Family Medicine Adult Medicine
PROC: 5A09457 Assistance with Respiratory Ventilation, 24-96 Consecutive Hours, Continuous Positive Airway Pressure (ICD-10-PCS; principal; 2020-10-22)
PROC: 5A09357 Assistance with Respiratory Ventilation, Less than 24 Consecutive Hours, Continuous Positive Airway Pressure (ICD-10-PCS; 2020-10-25)
DX: I11.0 Hypertensive heart disease with heart failure (principal); J96.21 Acute and chronic respiratory failure with hypoxia; J96.22 Acute and chronic respiratory failure with hypercapnia; E44.1 Mild protein-calorie malnutrition; E87.2 Acidosis; I48.20 Chronic atrial fibrillation, unspecified; Z68.44 Body mass index [BMI] 60.0-69.9, adult; E66.2 Morbid (severe) obesity with alveolar hypoventilation; E78.5 Hyperlipidemia, unspecified; I25.10 Atherosclerotic heart disease of native coronary artery without angina pectoris; I49.5 Sick sinus syndrome; I87.2 Venous insufficiency (chronic) (peripheral); J44.9 Chronic obstructive pulmonary disease, unspecified; I50.23 Acute on chronic systolic (congestive) heart failure; N40.0 Benign prostatic hyperplasia without lower urinary tract symptoms; K21.9 Gastro-esophageal reflux disease without esophagitis; D64.9 Anemia, unspecified; I42.0 Dilated cardiomyopathy; E11.42 Type 2 diabetes mellitus with diabetic polyneuropathy; Z79.01 Long term (current) use of anticoagulants; Z79.4 Long term (current) use of insulin; Z82.49 Family history of ischemic heart disease and other diseases of the circulatory system; Z87.891 Personal history of nicotine dependence; Z95.810 Presence of automatic (implantable) cardiac defibrillator; Z99.81 Dependence on supplemental oxygen; Z79.899 Other long term (current) drug therapy; Z79.82 Long term (current) use of aspirin
CPT/HCPCS: 36415; 36600; 71045; 80048; 80053; 80061; 80162; 80202; 82375; 82805; 82962; 83036; 83735; 83880; 84484; 85025; 93005; 93306; 93970; 94640; 94660; 99291; C1893; J0295; J1815; J1940; J3370; J7050; J7060